=== PATIENT | male | born 2005 | race Caucasian/White ===

== ENCOUNTER 2023-06-14 14:18 | Emergency (ER) | payer MEDICAID, OTHER ==
[~2023-06-14] VITALS: Ht 172.7 cm; Wt 74.4 kg
[2023-06-14 14:48] VITALS: O2SAT 98
== END 2023-06-14 16:35 | disposition home or self-care (01) ==
LOC: ER 14:18
DX: S16.1XXA Strain of muscle, fascia and tendon at neck level, initial encounter (principal); S40.012A Contusion of left shoulder, initial encounter; S30.0XXA Contusion of lower back and pelvis, initial encounter; W18.39XA Other fall on same level, initial encounter; Y93.89 Activity, other specified; Y92.89 Other specified places as the place of occurrence of the external cause; Y99.8 Other external cause status
CPT/HCPCS: 70450; 72125; 72170; 73030; A4663